=== PATIENT | female | born 1980 | race Caucasian/White ===

== ENCOUNTER 2023-08-17 09:28 | Emergency (ER) | payer OTHER, SELFPAY ==
[2023-08-17] VITALS (16 sets, daily range): BP systolic 120–139; BP diastolic 78–95; PULSE 74–98; RESP 15–16; TEMP 37.1; O2SAT 97–100; BMI 32.3
--- NOTE | 2023-08-17 11:16 | ED_ITS ---
HPI - Back Pain/Injury General Chief Complaint: Back Pain/Injury Stated Complaint: Back Px Time Seen by Provider: 08/17/23 11:15 Source: patient and EMS Mode of arrival: EMS Limitations: no limitations History of Present Illness HPI Narrative: This is a 43-year-old female with history of migraines, ADHD who presents with complaint of sudden onset back pain. 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 Patient states she felt something sort of pop and feel very tight on the right lower back. She sat down in a chair and had some increasing pain and radiating down her leg particularly with paresthesias. Patient states she can lift her foot without issue she has pain with movement of her leg. It is just the right side. She states pain is more to the right not so much midline and then radiates towards the buttock. She has not had similar symptoms in the past. No other trauma or injuries. No loss of bowel or bladder control. No saddle anesthesia. Patient states no fevers or chills. No other injuries. Does not have any pain down the left side. Patient states has not had anything for pain today. She has had prior , hysterectomy and cholecystectomy. She is on medication for migraines, anxiety and ADHD. Allergic to tree nuts and penicillin. No tobacco, occasional alcohol, no recreational drugs. She was at work when this occurred. Related Data Previous Rx's Medication Instructions Recorded diazepam 5 mg tablet (Valium) 5 mg PO TID PRN muscle spasm #10 08/17/23 tabs oxycodone 5 mg tablet 5 mg PO Q6H PRN pain #20 tabs 08/17/23 prednisone 10 mg tablets in a dose See Rx Instructions PO .COMPLEX 08/17/23 pack #21 ea Allergies Allergy/AdvReac Type Severity Reaction Status Date / Time tree nut Allergy Severe Anaphylaxis Verified 08/17/23 09:42 Penicillins Allergy Mild Hives Verified 08/17/23 09:42 Review of Systems Review of Systems ROS Unobtainable: All systems reviewed & are unremarkable except as noted in HPI and below Patient History Social History Smoking Status: Never smoker Smoking Status: Never smoker alcohol intake frequency: holidays/special occasions only Exam Narrative Exam Narrative: GENERAL: Alert and oriented x three, female in mild distress. HEENT: Head normocephalic, atraumatic, EOMI, pupils reactive, face symmetric, moist mucous membranes NECK: Supple, full range of motion CARDIOVASCULAR: Regular rate and rhythm without murmurs, rubs or gallops. RESPIRATORY: Breath sounds equal bilaterally, no wheezes rales or rhonchi. ABDOMEN: Soft, nontender. Normoactive bowel sounds all 4 quadrants. No guarding or rebound, rigidity, no mass : No CVA tenderness BACK: No cervical, thoracic or lumbar vertebral point tenderness. Patient does have tenderness in the right lower lumbar region. Patient has decreased range of motion. Patient's gait is deferred. No saddle anesthesia. Muscle strength is 5/5 in lower extremities, DTRs are 2/4 and lower extremities. Dorsalis pedis and tibialis pulses are 2+ and lower extremities. Sensation is intact in the lower extremities. EXTREMITIES: Normal range of motion, no clubbing or edema. Neurovascularly intact NEUROLOGICAL: Cranial nerves II through XII grossly intact. Moving all extremities SKIN: Warm, dry, no petechiae, no rashes or lesions. Initial Vital Signs Initial Vital Signs: Vital Signs Pulse Oximetry 100 08/17/23 09:35 Course Orders Ordered: Discontinued Medications Dexamethasone (Dexamethasone 10 Mg/Ml Vial) 10 mg PO NOW ONE Stop: 08/17/23 11:29 Last Admin: 08/17/23 11:41 Dose: 10 mg Documented By: HERIBERTO Diazepam (Diazepam 5 Mg Tablet) 5 mg PO NOW ONE Stop: 08/17/23 11:29 Last Admin: 08/17/23 11:40 Dose: 5 mg Documented By: HERIBERTO Hydromorphone HCl (Hydromorphone 1 Mg Inj) 1 mg IM NOW ONE Stop: 08/17/23 12:38 Last Admin: 08/17/23 12:59 Dose: 1 mg Documented By: HERIBERTO Ketorolac Tromethamine (Ketorolac 30 Mg/Ml Vial) 30 mg IM NOW ONE Stop: 08/17/23 11:29 Last Admin: 08/17/23 11:44 Dose: 30 mg Documented By: HERIBERTO Oxycodone/Acetaminophen (Oxycodone/Acetaminophen 5/325 Tablet) 1 tab PO NOW ONE Stop: 08/17/23 13:57 Last Admin: 08/17/23 14:09 Dose: 1 tab Documented By: RLS Vital Signs Vital signs: Vital Signs - 8 hr 08/17/23 09:35 08/17/23 09:38 08/17/23 09:38 Temperature Pulse Rate 91 H Respiratory Rate Blood Pressure 120/85 Pulse Oximetry 100 100 Oxygen Delivery Method 08/17/23 09:43 08/17/23 10:00 08/17/23 10:00 Temperature 98.7 F Pulse Rate 87 88 Respiratory Rate 16 Blood Pressure 120/85 127/78 Pulse Oximetry 100 98 Oxygen Delivery Method Room Air 08/17/23 10:30 08/17/23 10:30 08/17/23 11:00 Temperature Pulse Rate 97 H Respiratory Rate Blood Pressure 131/81 122/87 Pulse Oximetry 99 Oxygen Delivery Method 08/17/23 11:00 08/17/23 11:28 08/17/23 11:30 Temperature Pulse Rate 85 89 Respiratory Rate Blood Pressure 125/79 Pulse Oximetry 100 100 Oxygen Delivery Method 08/17/23 11:32 08/17/23 12:00 08/17/23 12:00 Temperature Pulse Rate 98 H 85 Respiratory Rate Blood Pressure 127/81 Pulse Oximetry 100 100 Oxygen Delivery Method 08/17/23 12:30 08/17/23 12:30 08/17/23 12:51 Temperature Pulse Rate 89 Respiratory Rate Blood Pressure 139/95 H 136/80 Pulse Oximetry 100 Oxygen Delivery Method 08/17/23 12:51 08/17/23 13:00 08/17/23 13:01 Temperature Pulse Rate 89 74 Respiratory Rate Blood Pressure 128/95 H Pulse Oximetry 98 97 Oxygen Delivery Method 08/17/23 13:01 08/17/23 13:30 08/17/23 13:30 Temperature Pulse Rate 87 82 Respiratory Rate Blood Pressure 133/87 Pulse Oximetry 97 97 Oxygen Delivery Method MDM - Back Pain/Injury Lab Data Labs: Lab Results 08/17/23 Range/Units 13:31 Urine RBC 5-10/hpf H (0-5/HPF) Urine WBC None seen (0-5/HPF) Ur Squamous Epith Cells 0-1 /hpf (0-5/HPF) Urine Bacteria None seen (None) Ur Culture Indicated? Cult not indicated Vol Urine Centrifuged 10ml (spun) Point of Care Testing Test Results Negative Urine Dip Bedside Urine Glucose Negative Bedside Urine Bilirubin - Negative Bedside Urine Ketone - Negative Urine Specific [place] 1.015 Bedside Urine Occult Blood +/- Bedside Urine pH 7.0 Bedside Urine Protein - Negative Bedside Urine Urobilinogen - Negative Bedside Urine Nitrite - Negative Bedside Urine Leukocytes - Negative Esterase MDM Narrative Medical decision making narrative: 43-year-old female with increased pain with straight leg raise particularly in the right but some on the left as well. Pain is more localized to the right side not as much midline. No other red flag symptoms currently does have some paresthesias on the right leg but no weakness. Patient received Toradol, steroid and muscle relaxer. Had minimal improvement. Did have a shot IM narcotic pain medication quite a bit of improvement canal move more comfortably. Discussed with patient we will give 1 dose of oral medication to help bridge her until she picks up her prescriptions. Discussed with patient return precautions all questions answered. Did give her work note and she left [facility] paperwork which I have filled out. Discharge Plan Departure Patient Disposition: Home Clinical Impression: Low back pain Instructions: DI for Low Back Pain Activity Restrictions/Additional Instructions: Follow up with L and I in the next 7-10 days if your symptoms have not significantly improved. Please call to set up an appointment. You may take Tylenol up to a 1000 mg every 6 hours and/or ibuprofen up to 600 mg every 6 hours. Take muscle relaxer 1 tablet every 6 hours as needed. Take steroids until completed. You may take oxycodone 1 tablet every 6 hours as needed for breakthrough pain. This medication can make you sleepy do not drive, perform hazardous activities or make any major decisions while taking it. This medication will make you constipated please take a stool softener once to twice daily until stools are soft and regular. Prescription sent to [facility] in [place]. Please return for rapidly worsening symptoms, loss of sensation, inability to lift or move your leg, loss of bowel or bladder control, fevers or other new or concerning changes. Prescriptions: New oxycodone 5 mg tablet 5 mg PO Q6H PRN (Reason: pain) Qty: 20 0RF prednisone 10 mg tablets,dose pack See Rx Instructions .ROUTE .COMPLEX Qty: 21 0RF Rx Instructions: Take 6 tablets p.o. x1 day, then 5 tablets p.o. x1 day then 4 tablets p.o. x1 day, then 3 tablets p.o. x1 day, then 2 tablets p.o. x1 day then 1 tablet p.o. x1 day diazepam [Valium] 5 mg tablet 5 mg PO TID PRN (Reason: muscle spasm) Qty: 10 0RF Stand Alone Forms: Patient Portal/API, Work Release Note
[2023-08-17] MEDS: diazePAM 5 MG TABLET PO (11:40)
[2023-08-17] MEDS: DEXAMETHASONE 10 MG/ML VIAL PO (11:41)
[2023-08-17] MEDS: KETOROLAC 30 MG/ML VIAL IM (11:44)
[2023-08-17] MEDS: HYDROMORPHONE 1 MG INJ IM (12:59)
[2023-08-17 13:54] LABS: Urine Volume 10mL (spun)
[2023-08-17 13:55] LABS: Bacteria Urine None Seen; Culture Indicated Urine Cult Not Indicated; RBC Urine 5-10/HPF (0-5/HPF); Squamous Epithelial Cell Urine 0-1 /HPF (0-5/HPF); WBC Urine None Seen (0-5/HPF)
[2023-08-17] MEDS: OXYCODONE/ACETAMINOPHEN 5/325 TABLET 1 TAB PO (14:09)
== END 2023-08-17 14:18 | disposition home or self-care (01) ==
PROVIDERS: Emergency Provider Emergency Medicine
DX: M54.50 Low back pain, unspecified (principal)
CPT/HCPCS: 81003; 81015; 81025; 96372; 99283; J1100; J1170; J1885